=== PATIENT | male | born 1975 | race African-American/Black ===

== ENCOUNTER 2020-04-21 16:53 | Emergency (ER) | payer SELFPAY ==
[2020-04-21 17:18] LABS: BILIRUBIN,URINE NEGATIVE (NEGATIVE); GLUCOSE, URINE (UA) NEGATIVE (NEGATIVE); KETONES,URINE (UA) NEGATIVE (NEGATIVE); LEUKOCYTE ESTERASE, URINE NEGATIVE (NEGATIVE); NITRITE,URINE NEGATIVE (NEGATIVE); OCCULT BLOOD,URINE SMALL (NEGATIVE); PROTEIN,URINE NEGATIVE (NEGATIVE); UROBILINOGEN,URINE 0.2 (NORMAL) E.U./dL (NORMAL)
[2020-04-21] MEDS ORDERED: SODIUM CHLORIDE 0.9% 1,000 ML IV STA (17:22)
[2020-04-21] MEDS ORDERED: ONDANSETRON 4 MG/2 ML VIAL IVP STA (17:22)
[2020-04-21 17:26] LABS: CLARITY,URINE CLEAR (CLEAR)
[2020-04-21 17:31] LABS: BASOPHILS # (AUTO) 0.1 10^3/uL (0.0-0.1); BASOPHILS % (AUTO) 0.7 %; EOSINOPHILS # (AUTO) 0.6 10^3/uL (0.0-0.7); EOSINOPHILS % (AUTO) 9.1 %; HGB - HEMOGLOBIN 14.2 g/dL (14.0-18.0); LYMPHOCYTES # (AUTO) 2.3 10^3/uL (1.5-3.5); LYMPHOCYTES % (AUTO) 33.4 %; MEAN CORPUSCULAR HGB CONC 32.9 g/dL (32.0-36.0); MEAN PLATELET VOLUME 8.7 fL (7.4-11.4); MONOCYTES # (AUTO) 0.4 10^3/uL (0.0-1.0); MONOCYTES % (AUTO) 6.3 %; NEUTROPHILS # (AUTO) 3.4 10^3/uL (1.5-6.6); NEUTROPHILS % (AUTO) 50.4 %; PLT - PLATELET COUNT 295 10^3/uL (130-450); RED BLOOD COUNT 5.07 10^6/uL (4.70-6.10); RED CELL DISTRIBUTION WIDTH 13.3 % (12.0-15.0); WHITE BLOOD COUNT 6.8 x10^3/uL (4.8-10.8)
[2020-04-21 17:39] LABS: BACTERIA,URINE None Seen /HPF (None Seen); RBC,URINE None Seen /HPF (0-5); SQUAMOUS EPITHELIAL CELL,UR NONE SEEN (<= Few)
[2020-04-21 17:41] LABS: ALBUMIN 4.5 g/dL (3.2-5.5); ALBUMIN/GLOBULIN RATIO 1.3 (1.0-2.2); BILIRUBIN,TOTAL 0.6 mg/dL (0.2-1.0); CALCIUM 9.7 mg/dL (8.5-10.3); CREATININE 0.8 mg/dL (0.6-1.2)
[2020-04-21] MEDS ORDERED: LIDOCAINE VISCOUS 2% 15 ML UDC MM STA (17:57)
--- NOTE | 2020-04-21 18:02 | ED Physician Documentation ---
History of Present Illness - Stated complaint Stated Complaint: ABD PX - Chief complaint Chief Complaint: Abd Pain - History obtained from History obtained from: Patient - Treatment prior to arrival Treatment prior to arrival: 45-year-old male presents the emergency department For evaluation of about 7 to 10 days of generalized abdominal discomfort. He reports that he often has a burning sensation in his epigastrium as well as a sour taste in his mouth. It is worse in the morning when he wakes up and improves after drinking milk. He has no vomiting but does report intermittent constipation or diarrhea. He has had no bloody stools. Denies any fevers. No history of previous abdominal surgical history. Denies any history of hypertension or diabetes. He is a daily cannabis user. Review of Systems Constitutional: reports: Reviewed and negative. denies: Fatigue, Weight Loss Eyes: reports: Reviewed and negative Ears: reports: Reviewed and negative Nose: reports: Reviewed and negative Throat: reports: Reviewed and negative Cardiac: reports: Reviewed and negative Respiratory: reports: Reviewed and negative GI: reports: Abdominal Pain, Constipation, Diarrhea. denies: Nausea, Vomiting, Hematemesis, Bloody / black stool : reports: Reviewed and negative Skin: reports: Reviewed and negative Musculoskeletal: reports: Reviewed and negative Neurologic: reports: Reviewed and negative Psychiatric: reports: Reviewed and negative PD PAST MEDICAL HISTORY - Past Surgical History Past Surgical History: Yes - Present Medications Home Medications: Ambulatory Orders Medication Instructions Recorded Confirmed Oxycodone HCl/Acetaminophen 1 each PO Q6HR PRN #20 tablet 01/16/16 [Percocet 10-325 mg Tablet] Amox/Clav 875/125 [Augmentin] 1 each PO Q12H #14 tablet 04/21/20 Omeprazole 40 mg PO DAILY #30 capsule. 04/21/20 - Allergies Allergies/Adverse Reactions: Allergies Allergy/AdvReac Type Severity Reaction Status Date / Time No Known Drug Allergies Allergy Verified 04/21/20 17:01 - Social History Does the pt smoke?: Yes Smoking Status: Light tobacco smoker Does the pt drink ETOH?: Yes Does the pt have substance abuse?: No - Immunizations Immunizations are current?: Yes - POLST Patient has POLST: No PD ED PE EXPANDED - General General: Alert, No acute distress, Well developed/nourished - Cardiac Cardiac: Regular Rate, Regular Rhythm, Radial strong equal, Pedal strong equal, Cap refill < 2 sec - Respiratory Respiratory: Clear to ausultation yohana - Abdomen Abdomen: Normal Bowel sounds, Tender to palpation (Generalized abdominal tenderness without guarding or rebound. Most of the pain is located in the epigastrium and left flank) - Derm Derm: Normal color, Warm and dry. No: Rash - Extremities Extremities: Normal. No: Deformity, Tenderness - Neuro Neuro: Alert and Oriented X 3, CNII-XII intact Results - Vitals Vitals: Vital Signs - 24 hr 04/21/20 17:01 Temperature 36.5 C Heart Rate 78 Respiratory 16 Rate Blood Pressure 150/87 H O2 Saturation 100 Oxygen O2 Source Room air - Labs Labs: Laboratory Tests 04/21/20 04/21/20 04/21/20 17:10 17:22 17:22 WBC 6.8 RBC 5.07 Hgb 14.2 Hct 43.1 MCV 85.0 MCH 28.0 MCHC 32.9 RDW 13.3 Plt Count 295 MPV 8.7 Neut # (Auto) 3.4 Lymph # (Auto) 2.3 [place] # (Auto) 0.4 Eos # (Auto) 0.6 Baso # (Auto) 0.1 Absolute Nucleated RBC 0.00 Nucleated RBC % 0.0 Sodium 133 L Potassium 3.8 Chloride 100 L Carbon Dioxide 26 Anion Gap 7.0 BUN 10 Creatinine 0.8 Estimated GFR (MDRD) 127 Glucose 102 H Calcium 9.7 Total Bilirubin 0.6 AST 20 ALT 25 Alkaline Phosphatase 55 Total Protein 8.0 Albumin 4.5 Globulin 3.5 Albumin/Globulin Ratio 1.3 Lipase 63 H Urine Color YELLOW Urine Clarity CLEAR Urine pH 7.0 Ur Specific [place] 1.020 Urine Protein NEGATIVE Urine Glucose (UA) NEGATIVE Urine Ketones NEGATIVE Urine Occult Blood SMALL H Urine Nitrite NEGATIVE Urine Bilirubin NEGATIVE Urine Urobilinogen 0.2 (NORMAL) Ur Leukocyte Esterase NEGATIVE Urine RBC None Seen Urine WBC 0-3 Ur Squamous Epith Cells NONE SEEN Urine Bacteria None Seen Ur Microscopic Review INDICATED Urine Culture Comments NOT INDICATED - Rads (name of study) CT abd Radiology: Final report received (Mildly prominent size of the appendix without evidence of surrounding inflammation. Close clinical follow-up with repeat imaging if clinically warranted is recommended to exclude developing appendicitis. Indeterminate left adrenal nodule. Further assessment with adrenal protocol MRI is recommende) PD MEDICAL DECISION MAKING - ED course Complexity details: reviewed results, re-evaluated patient, considered differential, d/w patient ED course: 45-year-old male presents the emergency department for evaluation of abdominal pain that has been ongoing for about 7 to 10 days. Most of the pain is located in the epigastrium and upper quadrant. He also reports symptoms similar to acid reflux especially in the morning. He does report that he quit drinking about 1 month ago. I suspect a gastritis or GERD component. will RX omeprazole. On exam he had mild tenderness in the epigastrium without guarding or rebound. There was no lower abdominal or right lower quadrant tenderness elicited. His labs were reviewed and essentially unremarkable. Specifically no leukocytosis. However given the etiology and duration of the symptoms we did proceed with a CT of the abdomen. It did show a mildly prominent appendix however there were no secondary signs of infection/inflammation or acute appendicitis. The CT images were reviewed with Dr. Hugo Valencia the on-call surgeon. Given history exam findings and labs he does not feel that the CT scan is consistent with acute appendicitis. This patient can be followed safely as an outpatient in the surgery clinic. I will write a prescription for 1 week of Augmentin. Patient will be given strict return precautions for fevers worsening abdominal pain or change in symptoms. Departure - Departure Disposition: 01 Home, Self Care Clinical Impression: Abdominal pain Qualifiers: Abdominal location: upper abdomen, unspecified Qualified Code(s): R10.10 - Upper abdominal pain, unspecified Condition: Stable Record reviewed to determine appropriate education?: Yes Instructions: Abdominal Pain Follow-Up: [facility] [Provider Group] Hugo Valencia MD [Provider Admit Priv/Credential] - Prescriptions: Amox/Clav 875/125 [Augmentin] 1 each PO Q12H #14 tablet Omeprazole 40 mg PO DAILY #30 capsule. Comments: Juan as we discussed I suspect that you have stomach inflammation and acid reflux. Please begin taking the omeprazole daily. I would like you to schedule an appointment at [facility] to establish yourself with your primary doctor and discuss the symptoms. You may need referral to a GI doctor. Please start taking the omeprazole as directed. Avoid eating 2 to 3 hours before going to bed and avoid spicy or caffeinated foods. Your labs today were essentially normal. We did do a CT scan of your abdomen and found that your appendix is prominent but not enlarged or inflamed or suggestive of appendicitis. I have discussed this case with our on-call surgeon Dr. Valencia. He would like to see you in his office in follow-up. Please attempt to get this scheduled as soon as possible. Please fill the prescription for the antibiotics and begin taking as directed. If at any point your symptoms change, they worsen, you have fevers uncontrolled vomiting please return immediately to the emergency department
[2020-04-21] MEDS ORDERED: IOVERSOL 320 100 ML VIAL IVP ONE ×2 (19:07→20:07)
--- NOTE | 2020-04-21 19:43 | CT Report ---
PROCEDURE: Abdomen/Pelvis W INDICATIONS: generalized abdominal pain CONTRAST: IV CONTRAST: Optiray 320 ml: 100 PO CONTRAST: *NO PO CONTRAST TECHNIQUE: After the administration of IV contrast, 5 mm thick sections acquired from the diaphragms to the symp hysis. 5 mm thick coronal and sagittal reformats were acquired. For radiation dose reduction, the f ollowing was used: automated exposure control, adjustment of mA and/or kV according to patient size. COMPARISON: None. FINDINGS: Image quality: Excellent. ABDOMEN: Lung bases: Left basilar scarring. Lung bases are otherwise clear. Heart size is normal. Solid organs: Liver and spleen are normal in size and enhancement. Gallbladder is within normal trivedi its Biliary system is non dilated. Pancreas enhances normally. 20 mm diameter enhancing left adren al nodule. No right adrenal nodules. Kidneys demonstrate normal size and enhancement, without hydron ephrosis. Peritoneum and bowel: Bowel loops demonstrate normal wall thickness and caliber. No free fluid or a ir. Appendix is mildly prominent in size, measuring 8 mm short axis, but without significant surroun ding fat stranding. Nodes and vessels: No retroperitoneal or mesenteric adenopathy by size criteria. Aorta and inferior vena cava are normal in size. Miscellaneous: No ventral hernias. PELVIS: Genitourinary: Bladder wall thickness is normal. Miscellaneous: No inguinal hernias or adenopathy. Bones: No suspicious bony lesions. No vertebral body compression fractures. IMPRESSION: 1. Mildly prominent size of appendix, without evidence of surrounding inflammation. Close clinical fo llow-up, with repeat imaging, if clinically warranted, is recommended to exclude developing appendici tis. 2. Indeterminate left adrenal nodule. Further assessment with adrenal protocol MRI is recommended. Reviewed by: River Heredia MD on 04/21/2020 7:42 PM PST Approved by: River Heredia MD on 04/21/2020 7:42 PM PST Station ID: [id number]
[2020-04-21 21:00] VITALS: BP 149/86
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
== END 2020-04-21 21:06 | disposition home or self-care (01) ==
LOC: ED 16:53
DX: R10.13 Epigastric pain (principal); F17.200 Nicotine dependence, unspecified, uncomplicated
CPT/HCPCS: 36415; 74177; 80053; 81001; 83690; 85025; 96361; 96374; 99284; Q9967; 81003; 87086

== ENCOUNTER 2023-04-25 15:59 | Outpatient (CLI) | payer SELFPAY | END 2023-04-25 16:00 | disposition critical access hospital (66) | LOC: EMS 15:59 | DX: S21.332A Puncture wound without foreign body of left front wall of thorax with penetration into thoracic cavity, initial encounter (principal); S21.331A Puncture wound without foreign body of right front wall of thorax with penetration into thoracic cavity, initial encounter; W34.00XA Accidental discharge from unspecified firearms or gun, initial encounter; Y92.481 Parking lot as the place of occurrence of the external cause | CPT/HCPCS: A0425; A0427 ==

== ENCOUNTER 2023-04-25 16:24 | Emergency (ER) | payer SELFPAY ==
[2023-04-25] MEDS ORDERED: PROPOFOL 1000 MG/100 ML 1,000 MG/100 ML BOTTLE IV ONE ×3 (16:49→18:08)
[2023-04-25] MEDS ORDERED: PROPOFOL 200 MG/20 ML VIAL IVP ONE (16:51)
[2023-04-25] MEDS ORDERED: ROCURONIUM 50 MG/5 ML VIAL ONE ×3 (16:51→17:52)
[2023-04-25] MEDS ORDERED: SUCCINYLCHOLINE 200 MG/10 ML VIAL ONE (16:51)
[2023-04-25] MEDS ORDERED: fentaNYL 100 MCG/2 ML VIAL IVP STA (17:11)
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
[2023-04-25 17:18] LABS: ABG BASE EXCESS -4.2 mmol/L (-2.0-3.0); ABG HCO3 22.1 mmol/L (22.0-26.0); ABG OXYGEN SATURATION 98 % (94-98); ABG PCO2 45 mmHg (34-45); ABG PH 7.31 (7.35-7.45); ABG PO2 118 mmHg (80-100); ABG TCO2 23.5 MMOL/L (21.0-29.0); ALLEN TEST POSITIVE
[2023-04-25 17:19] LABS: ABG MODE OF VENTILATION ASSIST/CONTROL; ABG RESPIRATORY RATE 14 b/min
[2023-04-25] MEDS ORDERED: ceFAZolin (2G) 2 GM in SODIUM CHLORIDE 0.9% 100ML 100 ML IV STA (17:25)
[2023-04-25] MEDS ORDERED: TETANUS/DIPHTHERIA/PERTUSSIS 0.5 ML SYRINGE IM ONE (17:25)
[2023-04-25 17:37] LABS: BASOPHILS # (AUTO) 0.1 10^3/uL (0.0-0.1); BASOPHILS % (AUTO) 0.7 %; EOSINOPHILS # (AUTO) 0.4 10^3/uL (0.0-0.7); EOSINOPHILS % (AUTO) 3.8 %; HCT - HEMATOCRIT 40.8 % (42.0-52.0); HGB - HEMOGLOBIN 12.5 g/dL (14.0-18.0); LYMPHOCYTES # (AUTO) 2.4 10^3/uL (1.5-3.5); LYMPHOCYTES % (AUTO) 23.1 %; MEAN CORPUSCULAR HEMOGLOBIN 27.4 pg (27.0-31.0); MEAN CORPUSCULAR HGB CONC 30.6 g/dL (32.0-36.0); MEAN CORPUSCULAR VOLUME 89.3 fL (80.0-94.0); MEAN PLATELET VOLUME 9.6 fL (7.4-11.4); MONOCYTES # (AUTO) 0.5 10^3/uL (0.0-1.0); MONOCYTES % (AUTO) 4.9 %; PLT - PLATELET COUNT 299 10^3/uL (130-450); RED BLOOD COUNT 4.57 10^6/uL (4.70-6.10); RED CELL DISTRIBUTION WIDTH 13.4 % (12.0-15.0); WHITE BLOOD COUNT 10.4 x10^3/uL (4.8-10.8)
[2023-04-25 17:50] LABS: INR 1.2 (0.8-1.2); PT - PROTHROMBIN TIME 12.5 secs (9.9-12.6)
[2023-04-25 17:50] LABS: BILIRUBIN,URINE NEGATIVE (NEGATIVE); GLUCOSE, URINE (UA) 100 mg/dL (NEGATIVE); KETONES,URINE (UA) NEGATIVE (NEGATIVE); LEUKOCYTE ESTERASE, URINE NEGATIVE (NEGATIVE); NITRITE,URINE NEGATIVE (NEGATIVE); OCCULT BLOOD,URINE TRACE-INTA (NEGATIVE); PH,URINE 6.5 PH (5.0-7.5); PROTEIN,URINE NEGATIVE (NEGATIVE); UROBILINOGEN,URINE 0.2 (NORMAL) E.U./dL (NORMAL)
[2023-04-25 17:51] LABS: ALBUMIN 3.9 g/dL (3.2-5.5); ALBUMIN/GLOBULIN RATIO 1.6 (1.0-2.2); ALKALINE PHOSPHATASE 40 IU/L (42-121); ALT ALANINE AMINOTRANSFERASE 25 IU/L (10-60); AST ASPARTATE AMINOTRANSFERASE 30 IU/L (10-42); BILIRUBIN,TOTAL 0.5 mg/dL (0.2-1.0); BUN - BLOOD UREA NITROGEN 10 mg/dL (6-20); CALCIUM 8.6 mg/dL (8.5-10.3); CARBON DIOXIDE - CO2 26 mmol/L (21-32); CHLORIDE 105 mmol/L (101-111); CREATININE 1.1 mg/dL (0.6-1.3); ETOH - ETHANOL < 10.0 mg/dL; GFR - MDRD 87 (>89); GLUCOSE 173 mg/dL (74-104); LIPASE 14 U/L (11-82); POTASSIUM 3.2 mmol/L (3.5-4.5); SODIUM 138 mmol/L (135-145); TOTAL PROTEIN 6.4 g/dL (6.4-8.9)
[2023-04-25 17:58] VITALS: O2SAT 100
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
[2023-04-25 18:01] LABS: CLARITY,URINE CLEAR (CLEAR)
[2023-04-25 18:02] LABS: AMPHETAMINE SCREEN,URINE NEGATIVE (NEGATIVE); BARBITURATE SCREEN,UR NEGATIVE (NEGATIVE); BENZODIAZEPINES SCREEN, URINE NEGATIVE (NEGATIVE); BUPRENORPHINE SCREEN, URINE NEGATIVE (NEGATIVE); COCAINE SCREEN URINE NEGATIVE (NEGATIVE); METHADONE SCREEN, URINE NEGATIVE (NEGATIVE); METHAMPHETAMINES SCREEN, URINE NEGATIVE (NEGATIVE); OPIATE SCREEN, URINE NEGATIVE (NEGATIVE); OXYCODONE SCREEN, URINE NEGATIVE (NEGATIVE); THC CANNABINOID SCREEN, URINE POSITIVE (NEGATIVE); TRICYCLIC ANTIDEPRESSANT,URINE NEGATIVE (NEGATIVE)
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
[2023-04-25 18:55] LABS: B. PARAPERTUSSIS- RESP PCR PAN NOT DETECTED; B. PERTUSSIS- RESP PCR PANEL NOT DETECTED; C. PNEUMONIAE- RESP PCR PANEL NOT DETECTED; CORONAVIRUS 229E-RESP PCR NOT DETECTED; CORONAVIRUS HKU1-RESP PCR NOT DETECTED; CORONAVIRUS NL63-RESP PCR NOT DETECTED; CORONAVIRUS OC43-RESP PCR NOT DETECTED; HUMAN METAPNEUMOVIRUS NOT DETECTED; INFLUENZA A- RESP PCR PANEL NOT DETECTED; INFLUENZA B - RESP PCR PANEL NOT DETECTED; M. PNEUMONIAE- RESP PCR PANEL NOT DETECTED; PARAINFLUENZA VIRUS 1 NOT DETECTED; PARAINFLUENZA VIRUS 2 NOT DETECTED; PARAINFLUENZA VIRUS 3 NOT DETECTED; PARAINFLUENZA VIRUS 4 NOT DETECTED; RHINOVIRUS/ENTEROVIRUS NOT DETECTED; RSV- RESP PCR PANEL NOT DETECTED; SARS-CoV-2 -RESP PCR PANEL NOT DETECTED
[2023-04-25 19:19] VITALS: BP 171/119
== END 2023-04-25 18:16 | disposition short-term general hospital (02) ==
LOC: ED 16:24
DX: S27.2XXA Traumatic hemopneumothorax, initial encounter (principal); J98.4 Other disorders of lung; S62.617B Displaced fracture of proximal phalanx of left little finger, initial encounter for open fracture; W34.00XA Accidental discharge from unspecified firearms or gun, initial encounter; F17.200 Nicotine dependence, unspecified, uncomplicated
CPT/HCPCS: 31500; 32551; 36415; 36430; 71045; 73130; 80053; 80306; 80320; 81003; 82803; 83690; 85025; 85610; 86850; 86900; 86901; 86920; 87633; 90715; 94002; 96365; 96375; 99291; G0390; J0330; P9016; 81001; 86769; 87086

== ENCOUNTER 2023-04-25 18:20 | Outpatient (CLI) | payer SELFPAY | END 2023-04-25 18:21 | disposition short-term general hospital (02) | LOC: EMS 18:20 | PROVIDERS: ATTEND Emergency Medicine | DX: S21.331A Puncture wound without foreign body of right front wall of thorax with penetration into thoracic cavity, initial encounter (principal); S69.91XA Unspecified injury of right wrist, hand and finger(s), initial encounter; W34.00XA Accidental discharge from unspecified firearms or gun, initial encounter | CPT/HCPCS: A0425; A0426 ==